=== PATIENT | male | born 1955 | race Caucasian/White ===

== ENCOUNTER 2021-01-20 03:24 | Emergency (ER) | payer BC ==
[~2021-01-20] VITALS: Ht 172.7 cm; Wt 76.0 kg
[2021-01-20] MEDS ORDERED: AMLODIPINE 10MG TABLET PO ONE (04:15)
[2021-01-20 04:29] LABS: HEMATOCRIT. 51.9 % (42.0-52.0); MEAN CORPUSCULAR HEMOGLOBIN 32.5 pg (28.0-32.0); MEAN CORPUSCULAR VOLUME 93.8 fL (80.0-94.0); PLATELET 213 x1000/uL (130-400); RED BLOOD CELL COUNT 5.53 mill/uL (4.7-6.1); RED CELL DISTRIBUTION WIDTH 14.5 % (11.6-14.6)
[2021-01-20 04:33] LABS: CHLORIDE 102 mEq/L (98-107)
[2021-01-20 04:38] LABS: ETHANOL BLOOD < 10 mg/dL
[2021-01-20 04:56] LABS: PLATELET ESTIMATE NORMAL
[2021-01-20 05:15] LABS: CLARITY URINE CLEAR (CLEAR); COLOR URINE YELLOW (YELLOW); KETONES URINE 1+ (NEGATIVE); LEUKOCYTE ESTERASE URINE NEGATIVE (NEGATIVE); NITRITE URINE NEGATIVE (NEGATIVE); OCCULT BLOOD URINE TRACE (NEGATIVE); PROTEIN URINE 1+ (NEGATIVE); SPECIFIC GRAVITY URINE 1.017 (1.005-1.030); UROBILINOGEN URINE 0.2 E.U./dL (0.2-1.0)
[2021-01-20 05:28] LABS: *AMPHETAMINES SCREEN URINE NEGATIVE (NEGATIVE); *BARBITURATES SCREEN URINE NEGATIVE (NEGATIVE); *BENZODIAZEPINES SCREEN URINE PRESUMTIVE POSITIVE (NEGATIVE); *COCAINE SCREEN URINE NEGATIVE (NEGATIVE); METHADONE URINE SCREEN NEGATIVE (NEGATIVE); OPIATES URINE SCREEN NEGATIVE (NEGATIVE)
[2021-01-20 05:29] LABS: CANNABINOID URINE SCREEN PRESUMTIVE POSITIVE (NEGATIVE); PHENCYCLIDINE URINE SCREEN NEGATIVE (NEGATIVE)
[2021-01-20] MEDS ORDERED: AMLO10TA80 MT ×2 (05:30→15:13)
[2021-01-20 06:00] VITALS: BP 183/103
[2021-01-20] MEDS ORDERED: POTASSIUM CHLORIDE 20MEQ TABLET SR PO SCH (06:00)
== END 2021-01-20 06:25 | disposition home or self-care (01) ==
LOC: ER 03:24
DX: R56.9 Unspecified convulsions (principal); I10 Essential (primary) hypertension; E87.6 Hypokalemia; F17.290 Nicotine dependence, other tobacco product, uncomplicated
CPT/HCPCS: 36415; 80053; 80305; 80320; 81003; 82962; 84132; 85025; 93005; 99285; 99406; G0480

== ENCOUNTER 2021-01-24 11:53 | Inpatient (IN) | payer MEDICARE, BC ==
[~2021-01-24] VITALS: Ht 172.7 cm; Wt 80.4 kg
[~2021-01-24 11:53] MED LIST: AMLO10TA80 MT
[2021-01-24 13:15] LABS: BASOPHILS % 0.6 % (0.0-2.0); EOSINOPHILS % 0.3 % (0.0-5.0); HEMATOCRIT. 52.2 % (42.0-52.0); HEMOGLOBIN. 18.2 g/dL (14.0-18.0); LYMPHOCYTES % 16.1 % (20.0-50.0); MEAN CORPUSCULAR HEMOGLOBIN 33.1 pg (28.0-32.0); MEAN PLATELET VOLUME 8.2 fl (7.4-10.4); MONOCYTES % 10.5 % (2.0-8.0); NEUTROPHILS % 72.5 % (40.0-76.0); PLATELET 241 x1000/uL (130-400); RED BLOOD CELL COUNT 5.49 mill/uL (4.7-6.1); RED CELL DISTRIBUTION WIDTH 14.2 % (11.6-14.6)
[2021-01-24] MEDS ORDERED: LORAZEPAM 2MG/ML CPJ IV ONE (13:30)
[2021-01-24 13:32] LABS: CHLORIDE 102 mEq/L (98-107)
[2021-01-24 13:38] LABS: ETHANOL BLOOD < 10 mg/dL
[2021-01-24 14:10] LABS: VITAMIN B12 SERUM >2000 pg/mL pg/mL (211-911)
[2021-01-24] MEDS ORDERED: DOCUSATE SODIUM 100MG CAPSULE PO PRN (17:30)
[2021-01-24] MEDS ORDERED: GUAIFENESIN 200MG/10ML SUGAR FREE UDC PO PRN (17:30)
[2021-01-24] MEDS ORDERED: HYDRALAZINE 20MG/ML VIAL IV PRN (17:30)
[2021-01-24] MEDS ORDERED: MORPHINE SULFATE 2 MG/ML CPJ (NOT FOR IM USE) IV PRN (17:30)
[2021-01-24] MEDS ORDERED: IPRATROPIUM/ALBUTEROL 0.5-3(2.5)MG/3ML NEB HHN PRN (17:30)
[2021-01-24] MEDS ORDERED: ONDANSETRON HCL 4MG/2ML INJ IV PRN (17:30)
[2021-01-24] MEDS ORDERED: HYDROCODONE/ACETAMINOPHEN 5/325MG TABLET PO PRN (17:30)
[2021-01-24] MEDS ORDERED: DIPHENHYDRAMINE 50MG/ML VIAL IV PRN (17:30)
[2021-01-24] MEDS ORDERED: ACETAMINOPHEN 325MG TABLET PO PRN (17:30)
[2021-01-24] MEDS ORDERED: MAGNESIUM/ALUMINUM HYDROXIDE/SIMETHICONE 30ML UDC PO PRN (17:30)
[2021-01-24] MEDS: ENOXAPARIN 40MG/0.4ML SYR SUBCUT SCH (18:34)
[2021-01-24 20:45] VITALS: BP 159/97
[2021-01-24] MEDS: SODIUM CHLORIDE 0.9% INJ 3ML FLUSH IVF SCH (21:59)
[2021-01-24 23:32] LABS: CREATINE KINASE 85 IU/L (39-308); CREATINE KINASE MB FRACTION < 1.0 ng/mL (0.5-3.6)
[2021-01-25] VITALS: BP 167/91
[2021-01-25] MEDS: LORAZEPAM 2MG/ML CPJ IV PRN ×2 (02:15→21:45)
[2021-01-25 03:10] LABS: CLARITY URINE CLEAR (CLEAR); COLOR URINE YELLOW (YELLOW); KETONES URINE NEGATIVE (NEGATIVE); LEUKOCYTE ESTERASE URINE NEGATIVE (NEGATIVE); NITRITE URINE NEGATIVE (NEGATIVE); OCCULT BLOOD URINE NEGATIVE (NEGATIVE); PH URINE 7.5 (4.5-8.0); PROTEIN URINE NEGATIVE (NEGATIVE); SPECIFIC GRAVITY URINE 1.006 (1.005-1.030); UROBILINOGEN URINE 0.2 E.U./dL (0.2-1.0)
[2021-01-25 03:24] LABS: *BARBITURATES SCREEN URINE NEGATIVE (NEGATIVE)
[2021-01-25 03:25] LABS: *AMPHETAMINES SCREEN URINE NEGATIVE (NEGATIVE); *BENZODIAZEPINES SCREEN URINE NEGATIVE (NEGATIVE); *COCAINE SCREEN URINE NEGATIVE (NEGATIVE); CANNABINOID URINE SCREEN PRESUMTIVE POSITIVE (NEGATIVE); METHADONE URINE SCREEN NEGATIVE (NEGATIVE); OPIATES URINE SCREEN NEGATIVE (NEGATIVE); PHENCYCLIDINE URINE SCREEN NEGATIVE (NEGATIVE)
[2021-01-25 04:00] VITALS: BP 165/100
[2021-01-25] MEDS: SODIUM CHLORIDE 0.9% INJ 3ML FLUSH IVF SCH ×3 (06:16→21:45)
[2021-01-25] MEDS: CLONIDINE 0.1MG TABLET PO PRN ×2 (06:25→21:45)
[2021-01-25 08:00] VITALS: BP 140/79
[2021-01-25 10:53] LABS: CHLORIDE 104 mEq/L (98-107)
[2021-01-25 10:56] LABS: BASOPHILS % 0.7 % (0.0-2.0); EOSINOPHILS % 0.3 % (0.0-5.0); HEMOGLOBIN. 16.7 g/dL (14.0-18.0); LYMPHOCYTES % 15.5 % (20.0-50.0); MEAN CORPUSCULAR HEMOGLOBIN 33.4 pg (28.0-32.0); MEAN CORPUSCULAR VOLUME 96.2 fL (80.0-94.0); MEAN PLATELET VOLUME 8.3 fl (7.4-10.4); MONOCYTES % 11.7 % (2.0-8.0); NEUTROPHILS % 71.8 % (40.0-76.0); PLATELET 212 x1000/uL (130-400); RED BLOOD CELL COUNT 4.99 mill/uL (4.7-6.1); RED CELL DISTRIBUTION WIDTH 13.9 % (11.6-14.6)
[2021-01-25 11:03] LABS: LDL CHOLESTEROL 68 mg/dL (5-100)
[2021-01-25 11:04] LABS: CREATINE KINASE 69 IU/L (39-308); CREATINE KINASE MB FRACTION < 1.0 ng/mL (0.5-3.6); HDL CHOLESTEROL 82 mg/dL (40-59)
[2021-01-25 11:05] LABS: T4 FREE 1.25 ng/dL (0.76-1.46)
[2021-01-25 12:00] VITALS: BP 160/99
[2021-01-25 16:00] VITALS: BP 138/86
[2021-01-25 17:21] LABS: HEPATITIS B SURFACE ANTIGEN NEGATIVE
[2021-01-25] MEDS: ENOXAPARIN 40MG/0.4ML SYR SUBCUT SCH (18:00)
[2021-01-25 20:00] VITALS: BP 171/109
[2021-01-25] MEDS ORDERED: NALOXONE HCL 0.4MG/ML VIAL IV PRN (21:45)
[2021-01-26] VITALS: BP 154/96
[2021-01-26] MEDS: LORAZEPAM 2MG/ML CPJ IV PRN ×2 (03:12→09:35)
[2021-01-26 04:00] VITALS: BP 143/93
[2021-01-26] MEDS: SODIUM CHLORIDE 0.9% INJ 3ML FLUSH IVF SCH (06:27)
[2021-01-26 08:00] VITALS: BP 138/87
[2021-01-26] MEDS ORDERED: LEVETIRACETAM 500MG TABLET PO NR (12:30)
[2021-01-26] MEDS ORDERED: KEPP500 PO (13:05)
[2021-01-26 13:11] VITALS: BP 138/87
== END 2021-01-26 15:00 | disposition home health service (06) | DRG 70 ==
LOC: ER 11:53 → 8WST 16:22 → ENRESERV 20:29
PROVIDERS: ADMIT Internal Medicine; ATTEND Internal Medicine
PROC: 4A10X4Z Monitoring of Central Nervous Electrical Activity, External Approach (ICD-10-PCS; principal; 2021-01-26)
DX: G93.40 Encephalopathy, unspecified (principal); N17.0 Acute kidney failure with tubular necrosis; D75.1 Secondary polycythemia; F12.90 Cannabis use, unspecified, uncomplicated; F17.200 Nicotine dependence, unspecified, uncomplicated; G40.909 Epilepsy, unspecified, not intractable, without status epilepticus; I10 Essential (primary) hypertension; I25.10 Atherosclerotic heart disease of native coronary artery without angina pectoris; K76.0 Fatty (change of) liver, not elsewhere classified; Y90.9 Presence of alcohol in blood, level not specified; B19.20 Unspecified viral hepatitis C without hepatic coma; F10.10 Alcohol abuse, uncomplicated; Z95.0 Presence of cardiac pacemaker; Z98.61 Coronary angioplasty status; Z79.899 Other long term (current) drug therapy
CPT/HCPCS: 36415; 76700; 80053; 80061; 80305; 80320; 81003; 82550; 82553; 82607; 82746; 83036; 83880; 84439; 84443; 84484; 85025; 85379; 86592; 86705; 86709; 86803; 87340; 93306; 95816; 99291; C1893; J0360; J1650; J2060; G0480

== ENCOUNTER 2021-01-27 23:16 | Emergency (ER) | payer BC, MEDICARE ==
[~2021-01-27] VITALS: Ht 172.7 cm; Wt 75.8 kg
[~2021-01-27 23:16] MED LIST changes: +KEPP500 PO
[2021-01-28] MEDS ORDERED: LORAZEPAM 2MG/ML CPJ IV STA (02:03)
[2021-01-28] MEDS ORDERED: SODIUM CHLORIDE 0.9% 1,000 ML IV ONE (02:15)
[2021-01-28 02:49] LABS: EOSINOPHILS % 0.4 % (0.0-5.0); HEMATOCRIT. 49.1 % (42.0-52.0); HEMOGLOBIN. 17.1 g/dL (14.0-18.0); LYMPHOCYTES % 16.2 % (20.0-50.0); MEAN CORPUSCULAR HEMOGLOBIN 32.6 pg (28.0-32.0); MEAN CORPUSCULAR VOLUME 93.8 fL (80.0-94.0); MEAN PLATELET VOLUME 8.3 fl (7.4-10.4); MONOCYTES % 9.4 % (2.0-8.0); PLATELET 254 x1000/uL (130-400); RED BLOOD CELL COUNT 5.23 mill/uL (4.7-6.1); RED CELL DISTRIBUTION WIDTH 13.8 % (11.6-14.6)
[2021-01-28 02:57] LABS: CHLORIDE 97 mEq/L (98-107)
[2021-01-28 02:58] LABS: CLARITY URINE CLEAR (CLEAR); COLOR URINE YELLOW (YELLOW); KETONES URINE NEGATIVE (NEGATIVE); LEUKOCYTE ESTERASE URINE NEGATIVE (NEGATIVE); NITRITE URINE NEGATIVE (NEGATIVE); OCCULT BLOOD URINE NEGATIVE (NEGATIVE); PROTEIN URINE NEGATIVE (NEGATIVE); SPECIFIC GRAVITY URINE 1.007 (1.005-1.030); UROBILINOGEN URINE 0.2 E.U./dL (0.2-1.0)
[2021-01-28 03:01] LABS: ETHANOL BLOOD < 10 mg/dL
[2021-01-28 03:14] LABS: *AMPHETAMINES SCREEN URINE NEGATIVE (NEGATIVE)
[2021-01-28 03:15] LABS: *BARBITURATES SCREEN URINE NEGATIVE (NEGATIVE); *BENZODIAZEPINES SCREEN URINE NEGATIVE (NEGATIVE); *COCAINE SCREEN URINE NEGATIVE (NEGATIVE); METHADONE URINE SCREEN NEGATIVE (NEGATIVE); OPIATES URINE SCREEN NEGATIVE (NEGATIVE); PHENCYCLIDINE URINE SCREEN NEGATIVE (NEGATIVE)
[2021-01-28 03:16] LABS: CANNABINOID URINE SCREEN PRESUMTIVE POSITIVE (NEGATIVE)
[2021-01-28 05:08] VITALS: BP 148/89
== END 2021-01-28 05:19 | disposition home or self-care (01) ==
LOC: ER 23:16
DX: F12.90 Cannabis use, unspecified, uncomplicated (principal); I10 Essential (primary) hypertension; R56.9 Unspecified convulsions; F17.210 Nicotine dependence, cigarettes, uncomplicated; Z71.6 Tobacco abuse counseling; Z95.0 Presence of cardiac pacemaker; Z98.890 Other specified postprocedural states
CPT/HCPCS: 36415; 70450; 71045; 80053; 80305; 80307; 80320; 80329; 81003; 82962; 83690; 84443; 85025; 96361; 96374; 99285; 99406; J2060; J7030; G0480

== ENCOUNTER 2021-01-28 15:36 | Emergency (ER) | payer BC, MEDICARE ==
[~2021-01-28] VITALS: Ht 177.8 cm; Wt 75.0 kg
[2021-01-28 15:39] VITALS: BP 170/88
[2021-01-28] MEDS ORDERED: SODIUM CHLORIDE 0.9% 1,000 ML IV ONE (16:15)
[2021-01-28 16:24] LABS: BG BASE EXCESS -2.4 mmol/L (-2.0-2.0); BG CARBOXYHEMOGLOBIN 1.7 % (0.5-1.5); BG DEOXYHEMOGLOBIN 2.3 % (0.0-5.0); BG HCO3 ACT 20.9 mmol/L (22.0-26.0); BG METHEMOGLOBIN 0.2 % (0.0-1.5); BG OXYGEN SATURATION 97.7 % (92.0-98.5); BG OXYHEMOGLOBIN 95.8 % (94.0-97.0); BG PCO2 32.6 mmHg (35.0-45.0); BG PH 7.425 (7.350-7.450); BG PO2 98.8 mmHg (75.0-100.0); BG SAMPLE SITE RIGHT BRACHIAL; BG TOTAL HEMOGLOBIN 15.8 g/dL (12.0-18.0); BG VENT MODE ROOM AIR
[2021-01-28 18:16] LABS: BASOPHILS % 0.9 % (0.0-2.0); EOSINOPHILS % 0.3 % (0.0-5.0); HEMATOCRIT. 46.3 % (42.0-52.0); HEMOGLOBIN. 15.9 g/dL (14.0-18.0); LYMPHOCYTES % 12.8 % (20.0-50.0); MEAN CORPUSCULAR HEMOGLOBIN 32.5 pg (28.0-32.0); MEAN CORPUSCULAR VOLUME 94.6 fL (80.0-94.0); MEAN PLATELET VOLUME 7.9 fl (7.4-10.4); MONOCYTES % 10.1 % (2.0-8.0); NEUTROPHILS % 75.9 % (40.0-76.0); PLATELET 254 x1000/uL (130-400); RED BLOOD CELL COUNT 4.89 mill/uL (4.7-6.1); RED CELL DISTRIBUTION WIDTH 13.6 % (11.6-14.6)
[2021-01-28 18:17] LABS: CHLORIDE 96 mEq/L (98-107)
[2021-01-28 18:22] LABS: ETHANOL BLOOD < 10 mg/dL
== END 2021-01-28 18:58 | disposition left against medical advice (07) ==
LOC: ER 15:36
DX: T49.0X1A Poisoning by local antifungal, anti-infective and anti-inflammatory drugs, accidental (unintentional), initial encounter (principal); Y92.9 Unspecified place or not applicable; I45.10 Unspecified right bundle-branch block; R00.0 Tachycardia, unspecified; I10 Essential (primary) hypertension; R56.9 Unspecified convulsions; Z95.0 Presence of cardiac pacemaker
CPT/HCPCS: 36415; 36600; 80053; 80307; 80320; 80329; 82375; 82805; 83690; 84484; 85025; 93005; 99284; J7030; G0480

== ENCOUNTER 2023-07-12 21:35 | Emergency (ER) | payer BC, MEDICARE | END 2023-07-12 23:10 | disposition left against medical advice (07) | LOC: ER 21:35 | DX: M54.50 Low back pain, unspecified (principal); Z53.21 Procedure and treatment not carried out due to patient leaving prior to being seen by health care provider ==

== ENCOUNTER 2023-07-15 19:19 | Emergency (ER) | payer BC ==
[~2023-07-15] VITALS: Ht 172.7 cm; Wt 64.0 kg
[2023-07-15 19:20] VITALS: BP 138/99; PULSE 72; RESP 18; TEMP 98.3; O2SAT 98
== END 2023-07-15 20:00 | disposition left against medical advice (07) ==
LOC: ER 19:19
DX: F10.129 Alcohol abuse with intoxication, unspecified (principal); Y90.0 Blood alcohol level of less than 20 mg/100 ml
CPT/HCPCS: 99281; 99283

== ENCOUNTER 2023-07-20 08:06 | Emergency (ER) | payer BC ==
[~2023-07-20] VITALS: Ht 175.3 cm; Wt 70.0 kg
[2023-07-20 08:12] VITALS: O2SAT 98
[2023-07-20] MEDS: SODIUM CHLORIDE 0.9% 1000ML BAG (SEPSIS BOLUS) IV ONE (09:35)
[2023-07-20] MEDS: PIPERACILLIN/TAZO 3.375G/50ML 50 ML IV ONE (10:09)
[2023-07-20] MEDS: VANCOMYCIN 1G PREMIX 200 ML IV ONE (10:40)
[2023-07-20] MEDS: ACETAMINOPHEN 325MG TABLET PO ONE (11:34)
[2023-07-20] MEDS: MORPHINE SULFATE 4 MG/ML INJ (FOR IV/IM USE) IV ONE (12:58)
[2023-07-20] MEDS: CEFTRIAXONE 1GM/50ML 50 ML IV ONE (12:59)
[2023-07-20] MEDS: KETOROLAC 30MG/ML VIAL IV ONE (13:00)
[2023-07-20 13:13] LABS: MEAN CORPUSCULAR HEMOGLOBIN 32.2 pg (28.0-32.0); MEAN CORPUSCULAR HGB CONC 33.3 g/dL (31.0-37.0); MEAN CORPUSCULAR VOLUME 96.8 fL (80.0-94.0); RED BLOOD CELL COUNT 6.43 mill/uL (4.7-6.1); RED CELL DISTRIBUTION WIDTH 22.7 % (11.6-14.6); WHITE BLOOD COUNT 3.5 x1000/uL (4.5-11.0)
[2023-07-20 13:18] LABS: DIFFERENTIAL COMMENT 1
[2023-07-20 13:20] LABS: HEMOGLOBIN. 20.7 g/dL (14.0-18.0)
[2023-07-20 13:22] LABS: INR 1.2; PROTHROMBIN TIME 12.7 sec (9.6-11.0)
[2023-07-20 13:32] LABS: HEMATOCRIT. 62.2 % (42.0-52.0)
[2023-07-20] MEDS: SODIUM CHLORIDE 0.9% 1,000 ML IV ONE (13:40)
[2023-07-20] MEDS: AZITHROMYCIN 500MG/250ML 250 ML IV ONE (13:40)
[2023-07-20 13:56] LABS: LACTIC ACID 4.5 mmol/L (0.4-2.0)
[2023-07-20 14:00] VITALS: BP 90/54; PULSE 75; RESP 22; TEMP 97.6
[2023-07-20 14:04] LABS: NUCLEATED RED BLOOD CELLS 1 /100 WBC
[2023-07-20 14:05] LABS: ANISOCYTOSIS 3+
[2023-07-20 14:07] LABS: PLATELET ESTIMATE DECREASED
[2023-07-20 14:08] LABS: MEAN PLATELET VOLUME 8.5 fl (7.4-10.4); PLATELET 113 x1000/uL (130-400)
== END 2023-07-20 15:28 ==
LOC: ER 08:06 → EDBEDREQTM 11:25 → EDBEDREQ 11:25 → ER 15:28 → CANBEDREQ 07-22 09:51
DX: R55 Syncope and collapse (principal); E86.0 Dehydration; F10.20 Alcohol dependence, uncomplicated; I10 Essential (primary) hypertension; Z95.0 Presence of cardiac pacemaker
CPT/HCPCS: 99291; 70450; 31500; 96365; 96367; 71045; 96361; 96366; 83605; 85025; 85610; 87040; 36415; 84145; 74176; J0456; J0696; J1885; J2543; J3370; J7030